=== PATIENT | female | born 1935 | race Caucasian/White ===

== ENCOUNTER 2020-04-18 22:00 | Inpatient (IN) | payer BC, MEDICARE ==
[~2020-04-18] VITALS: Ht 149.9 cm; Wt 36.3 kg
--- NOTE | 2020-04-18 22:30 | NUR ---
Patient BIB rescue from [facility] for c/o SOB, low O2 sats. Patient upon arrival A/Ox2, denies any distress but on RA O2 sat is 88%. Patient unable to lay flat on gurny with c/o SOB. Patient placed on 3Liters of O2.
[2020-04-18] MEDS ORDERED: METO25TA6 PO (22:44)
[2020-04-18] MEDS ORDERED: OLAN5TAB3 PO ×2 (22:44→22:48)
[2020-04-18] MEDS ORDERED: SERT100T PO (22:44)
[2020-04-18] MEDS ORDERED: MIRT-121 PO (22:44)
[2020-04-18] MEDS ORDERED: FURO-152 PO (22:44)
[2020-04-18] MEDS ORDERED: ATOR40TA29 PO (22:44)
[2020-04-18] MEDS ORDERED: [UNRECOGNIZED DRUG - CODE] PO (22:44)
[2020-04-18] MEDS ORDERED: MULT1TAB11 PO (22:48)
[2020-04-18] MEDS ORDERED: POLY17PO4 PO (22:48)
[2020-04-18] MEDS ORDERED: CHOL200026 PO (22:48)
[2020-04-18] MEDS ORDERED: MAGN400O6 PO (22:48)
[2020-04-18] MEDS ORDERED: IV NS 1000 ML 1,000 ML IV ONE (23:00)
[2020-04-18 23:41] LABS: BASOPHILS # (AUTO) 0.1 K/uL (0.0-8.0); BASOPHILS % (AUTO) 1.4 % (0.0-2.0); EOSINOPHILS % (AUTO) 0.2 % (0.0-7.0); HEMATOCRIT 35.5 % (31.2-41.9); HEMOGLOBIN 11.9 g/dL (10.9-14.3); LYMPHOCYTES # (AUTO) 0.2 K/uL (20.0-40.0); MEAN CORPUSCULAR HEMOGLOBIN 31.6 uug (24.7-32.8); MEAN CORPUSCULAR HGB CONC 34 g/dL (32.3-35.6); MEAN CORPUSCULAR VOLUME 94.1 fL (75.5-95.3); MONOCYTES # (AUTO) 0.6 K/uL (2.0-10.0); MONOCYTES % (AUTO) 9.8 % (0.0-11.0); NEUTROPHILS % (AUTO) 84.6 % (38.5-71.5); PLATELET COUNT (AUTO) 157 K/uL (179-408); RED BLOOD CELL COUNT(AUTO) 3.77 MIL/uL (3.63-4.92); WHITE BLOOD COUNT (AUTO) 5.9 K/uL (3.8-11.8)
[2020-04-18 23:54] LABS: BILIRUBIN,TOTAL 0.7 mg/dL (0.2-1.0); POTASSIUM 4.2 mmol/L (3.5-5.1); TOTAL PROTEIN, SERUM 8.8 g/dL (6.4-8.2)
[2020-04-19] MEDS ORDERED: DEXAMETHASONE SOD PHOSPHATE 4 MG INJ IV ONE ×2 (00:15→23:00)
[2020-04-19] MEDS ORDERED: DEXAMETHASONE SOD PHOSPHATE 10 MG INJ ONE (00:26)
[2020-04-19] MEDS ORDERED: ACETAMINOPHEN 325 MG TABLET PO PRN (01:15)
[2020-04-19] MEDS ORDERED: ONDANSETRON 4 MG/2 ML VIAL IV PRN (01:15)
[2020-04-19] MEDS ORDERED: HYDROCODONE/APAP 5-325MG TABLET PO PRN (01:15)
[2020-04-19] MEDS ORDERED: ENOXAPARIN SODIUM 40 MG/0.4 ML DISP.SYRIN SQ SCH (01:15)
[2020-04-19] MEDS ORDERED: ENOXAPARIN SODIUM 30 MG/0.3 ML DISP.SYRIN SQ SCH (02:38)
--- NOTE | 2020-04-19 03:05 | NUR ---
Transfered to 3rd floor Tele via gurny with no distress noted.
[2020-04-19 03:20] VITALS: BP 133/39
--- NOTE | 2020-04-19 03:52 | NUR ---
patient admitted at 0320 orders received before patient arrival. lovenox administered now.
--- NOTE | 2020-04-19 03:54 | NUR ---
patient received. aaox3 but forgetful. no s/s of acute distress and v/s stable at this time. on NC 2L. belonging list completed and ID band on. PIV intact and patent. safety precautions provided. will continue to monitor and assess patient.
[2020-04-19 12:00] VITALS: BP 98/40
[2020-04-19 15:51] VITALS: BP 99/40
[2020-04-19] MEDS ORDERED: APIX2.5T PO (16:13)
[2020-04-19] MEDS ORDERED: MAGNESIUM HYDROXIDE 30 ML LIQUID UDC PO PRN (16:45)
[2020-04-19] MEDS: METOPROLOL TARTRATE 25 MG TABLET PO SCH (17:00)
[2020-04-19] MEDS: APIXABAN 2.5 MG TABLET PO SCH (17:34)
--- NOTE | 2020-04-19 18:00 | NUR ---
EOSS: No significant acute changes during this shift. No changes in LOC. All due medications given as ordered and tolerated well. Pt. seen by Dr. Valentine and started on Remdesivir. Pt. swab per SYSTEMS MECH[employer]IC order for COVID-19. Remain on 2-3LPM via NC, no desaturation. Kept on isolation precaution for COVID-19. All pt. needs attended and met. Safety measures in place. Call light and all frequently used items within pt. reach. Will endorse to oncoming shift accordingly. Addendum: 04/19/20 at 1808 by ARGELIA SAXENA RN SR on [employer] [place]
[2020-04-19] MEDS ORDERED: CEFTRIAXONE 1 G in IV DEXTROSE 5% 50 ML IV SCH (20:00)
[2020-04-19] MEDS ORDERED: REMDESIVIR (CHARGED) 200 MG in IV NORMAL SALINE 210 ML IV ONE (20:00)
[2020-04-19 20:15] VITALS: BP 106/41
[2020-04-19] MEDS ORDERED: AZITHROMYCIN IV 500 MG in IV DEXTROSE 5% 250 ML IV SCH (21:00)
[2020-04-19] MEDS: AMIODARONE HCL 200 MG TABLET PO SCH ×2 (21:00→21:10)
[2020-04-19] MEDS: MIRTAZAPINE 15 MG TABLET PO SCH (21:10)
[2020-04-19] MEDS: ATORVASTATIN 40 MG TABLET PO SCH (21:10)
[2020-04-19] MEDS: OLANZAPINE 5 MG TABLET PO SCH (21:10)
--- NOTE | 2020-04-19 21:22 | NUR ---
Pt refused Amiodarone stating "I don't feel comfortable taking something new, can I talk with the doctor in the morning?". Provided pt with education in regards to risks and benefits, will continue to monitor and endorse.
[2020-04-19] MEDS ORDERED: IV NORMAL SALINE 500 ML IV SCH (22:45)
--- NOTE | 2020-04-19 22:46 | NUR ---
Notified HERB Morales of patient's low BP prior to beginning initial dose of Remdesivir. New orders given to slowly infuse 500ml NS bolus and reassess pt for higher BP and administer then. Will continue to monitor pt respirations and s/s of SOB.
[2020-04-19] MEDS: DEXAMETHASONE SOD PHOSPHATE 4 MG INJ IV SCH (23:36)
[2020-04-20] VITALS (8 sets, daily range): BP systolic 113–143; BP diastolic 43–54
--- NOTE | 2020-04-20 04:17 | NUR ---
Pt BP increased after bolus. Pt asymptomatic. Will begin remdesivir and continue to monitor.
[2020-04-20 05:30] LABS: *BILIRUBIN,URIN NEGATIVE (NEGATIVE); *BLOOD, URINE NEGATIVE (NEGATIVE); *COLOR,URINE YELLOW (YELLOW); *KETONES,URINE NEGATIVE (NEGATIVE); *UROBILINOGEN,URINE 0.2 E.U./dl (NORMAL); LEUKOCYTE ESTERASE ,URINE TRACE (NEGATIVE); NITRITE, URINE NEGATIVE (NEGATIVE); UGLUCOSE NEGATIVE (NEGATIVE)
--- NOTE | 2020-04-20 05:35 | NUR ---
VSS S/p initial Remdesivir infusion BP 122/48 HR 82 RR 18 T 97.8 O2 100 via 2L NC. No s/s of distress noted at this time. Pt denies n/v, chills, shivering, dizziness, lightheadedness. Will continue to monitor for s/s of reaction and endorse to oncoming staff.
[2020-04-20 06:11] LABS: *CLARITY,URINE HAZY (CLEAR)
[2020-04-20 06:15] LABS: BACTERIA,URINE NONE SEEN /HPF (NONE SEEN); RBC,URINE 0-3 /HPF (0-3); SQUAMOUS EPITHELIAL CELL,UR MODERATE /HPF (NONE SEEN)
[2020-04-20 07:00] LABS: BASOPHILS % (AUTO) 0.1 % (0.0-2.0); HEMATOCRIT 29.3 % (31.2-41.9); HEMOGLOBIN 9.8 g/dL (10.9-14.3); LYMPHOCYTES # (AUTO) 0.2 K/uL (20.0-40.0); LYMPHOCYTES % (AUTO) 2.7 % (20.5-51.5); MEAN CORPUSCULAR HEMOGLOBIN 31.8 uug (24.7-32.8); MEAN CORPUSCULAR HGB CONC 33 g/dL (32.3-35.6); MEAN CORPUSCULAR VOLUME 95.6 fL (75.5-95.3); MONOCYTES # (AUTO) 0.2 K/uL (2.0-10.0); MONOCYTES % (AUTO) 3.8 % (0.0-11.0); NEUTROPHILS # (AUTO) 6.2 K/uL (1.8-8.9); NEUTROPHILS % (AUTO) 93.4 % (38.5-71.5); PLATELET COUNT (AUTO) 110 K/uL (179-408); RED BLOOD CELL COUNT(AUTO) 3.06 MIL/uL (3.63-4.92); WHITE BLOOD COUNT (AUTO) 6.6 K/uL (3.8-11.8)
[2020-04-20 07:17] LABS: BILIRUBIN,DIRECT 0.2 mg/dL (0.0-0.2); BILIRUBIN,TOTAL 0.5 mg/dL (0.2-1.0); CREATININE 0.7 mg/dL (0.6-1.3); MAGNESIUM 1.8 mg/dL (1.8-2.4); PHOSPHOROUS 3.1 mg/dL (2.5-4.9); POTASSIUM 4.2 mmol/L (3.5-5.1); TOTAL PROTEIN, SERUM 6.7 g/dL (6.4-8.2)
[2020-04-20] MEDS: AMIODARONE HCL 200 MG TABLET PO SCH (09:00)
[2020-04-20] MEDS: METOPROLOL TARTRATE 25 MG TABLET PO SCH ×2 (09:00→17:20)
[2020-04-20] MEDS: SERTRALINE HCL 100 MG TABLET PO SCH (09:41)
[2020-04-20] MEDS: MULTIVIT, IRON, MIN NO. 8, FA TABLET PO SCH (09:41)
[2020-04-20] MEDS: CHOLECALCIFEROL 1,000 UNIT TABLET PO SCH (09:41)
[2020-04-20] MEDS: FUROSEMIDE 20 MG TABLET PO SCH (09:41)
[2020-04-20] MEDS: DEXAMETHASONE SOD PHOSPHATE 4 MG INJ IV SCH (09:42)
[2020-04-20] MEDS: APIXABAN 2.5 MG TABLET PO SCH ×2 (09:46→17:21)
[2020-04-20] MEDS: ENSURE CLEAR 240 ML LIQUID (MIX BERRY) PO SCH ×3 (09:48→17:21)
--- NOTE | 2020-04-20 10:30 | NUR ---
Patient refused Amiodarone at this time stating she wants to talk to MD first regarding new med. MD made aware. Refused Metoprolol at this time since she wants her BP monitored for a few times first since initially she had low BP. Educated on risks and benefits
[2020-04-20 19:14] LABS: *OCCULT BLOOD STOOL NEGATIVE (NEGATIVE)
[2020-04-20] MEDS: ATORVASTATIN 40 MG TABLET PO SCH (20:57)
[2020-04-20] MEDS: OLANZAPINE 5 MG TABLET PO SCH (20:57)
[2020-04-20] MEDS: REMDESIVIR (CHARGED) 100 MG in IV NORMAL SALINE 230 ML IV SCH (20:57)
[2020-04-20] MEDS: MIRTAZAPINE 15 MG TABLET PO SCH (20:57)
--- NOTE | 2020-04-20 22:00 | NUR ---
Pt awake and alert. No s/s of acute distress noted at this time. Pt on 1L NC, denies SOB while resting in bed. Remdesivir administered per order VSS. Pt denies feeling of lightheadedness, dizziness, n/v, chills. Will continue to monitor for s/s of interaction.
[2020-04-21] VITALS (8 sets, daily range): BP systolic 105–141; BP diastolic 48–63
--- NOTE | 2020-04-21 06:00 | NUR ---
Pt anxious sitting on the side of the bed stating "Im coughing up blood". Upon assessment notice three tissues at her side table. One noted with brown tinged sputum dime size and the other clear white sputum with a streak of bright red blood tinge. Pt SOB on 2L NC O2@ 87% RR 24. Provided relaxation techniques and increased NC to 3L, O2 at 96%. Notified Nathalie DIRECTOR OF FIRST IMPRESSIONS awaiting response. Endorsed to oncoming shift.
[2020-04-21 07:47] LABS: BILIRUBIN,DIRECT 0.2 mg/dL (0.0-0.2); BILIRUBIN,TOTAL 0.7 mg/dL (0.2-1.0); CREATININE 0.7 mg/dL (0.6-1.3); MAGNESIUM 2.2 mg/dL (1.8-2.4); PHOSPHOROUS 2.5 mg/dL (2.5-4.9); POTASSIUM 4.2 mmol/L (3.5-5.1); TOTAL PROTEIN, SERUM 7.8 g/dL (6.4-8.2)
[2020-04-21 08:12] LABS: BASOPHILS % (AUTO) 0.1 % (0.0-2.0); HEMATOCRIT 35.7 % (31.2-41.9); HEMOGLOBIN 11.1 g/dL (10.9-14.3); LYMPHOCYTES # (AUTO) 0.4 K/uL (20.0-40.0); LYMPHOCYTES % (AUTO) 3.2 % (20.5-51.5); MEAN CORPUSCULAR HEMOGLOBIN 31.6 uug (24.7-32.8); MEAN CORPUSCULAR HGB CONC 31 g/dL (32.3-35.6); MEAN CORPUSCULAR VOLUME 101.4 fL (75.5-95.3); MONOCYTES # (AUTO) 0.9 K/uL (2.0-10.0); MONOCYTES % (AUTO) 7.7 % (0.0-11.0); NEUTROPHILS # (AUTO) 10.4 K/uL (1.8-8.9); PLATELET COUNT (AUTO) 221 K/uL (179-408); RED BLOOD CELL COUNT(AUTO) 3.53 MIL/uL (3.63-4.92); WHITE BLOOD COUNT (AUTO) 11.6 K/uL (3.8-11.8)
[2020-04-21] MEDS: SERTRALINE HCL 100 MG TABLET PO SCH (11:12)
[2020-04-21] MEDS: MULTIVIT, IRON, MIN NO. 8, FA TABLET PO SCH (11:12)
[2020-04-21] MEDS: APIXABAN 2.5 MG TABLET PO SCH ×2 (11:12→17:49)
[2020-04-21] MEDS: CHOLECALCIFEROL 1,000 UNIT TABLET PO SCH (11:13)
[2020-04-21] MEDS: DEXAMETHASONE SOD PHOSPHATE 4 MG INJ IV SCH (11:13)
[2020-04-21] MEDS: FUROSEMIDE 20 MG TABLET PO SCH (11:13)
[2020-04-21] MEDS: ENSURE CLEAR 240 ML LIQUID (MIX BERRY) PO SCH ×3 (11:14→17:50)
[2020-04-21] MEDS: METOPROLOL TARTRATE 25 MG TABLET PO SCH ×2 (11:27→17:48)
[2020-04-21] MEDS: REMDESIVIR (CHARGED) 100 MG in IV NORMAL SALINE 230 ML IV SCH (20:29)
[2020-04-21] MEDS: MIRTAZAPINE 15 MG TABLET PO SCH (20:30)
[2020-04-21] MEDS: OLANZAPINE 5 MG TABLET PO SCH (20:30)
[2020-04-21] MEDS: ATORVASTATIN 40 MG TABLET PO SCH (20:30)
--- NOTE | 2020-04-21 23:37 | NUR ---
Patient stable throughout shift. No hypotension, dizziness and headache during administration of Remdesivir, currently on O2 @ 2L, denied SOB or distress at this time. Endorsed on receiving nurse. safety precaution in place
[2020-04-22 01:07] VITALS: BP 126/45
[2020-04-22 05:41] VITALS: BP 129/56
[2020-04-22] MEDS: DEXAMETHASONE SOD PHOSPHATE 4 MG INJ IV SCH (09:00)
[2020-04-22] MEDS: CHOLECALCIFEROL 1,000 UNIT TABLET PO SCH (09:00)
[2020-04-22] MEDS: APIXABAN 2.5 MG TABLET PO SCH ×2 (09:00→16:52)
[2020-04-22] MEDS: ENSURE CLEAR 240 ML LIQUID (MIX BERRY) PO SCH ×3 (09:00→16:59)
[2020-04-22] MEDS: SERTRALINE HCL 100 MG TABLET PO SCH (09:45)
[2020-04-22] MEDS: MULTIVIT, IRON, MIN NO. 8, FA TABLET PO SCH (09:45)
[2020-04-22] MEDS: FUROSEMIDE 20 MG TABLET PO SCH (09:46)
[2020-04-22] MEDS: METOPROLOL TARTRATE 25 MG TABLET PO SCH ×2 (09:46→16:58)
[2020-04-22 11:38] VITALS: BP 126/42
--- NOTE | 2020-04-22 13:39 | NUR ---
Patient is resting, alert oriented x4, VS wnl, patient had slight desaturation after ambulating to the restroom, Saturation improved after few min of rest (O2 98% on 2). morning dose of Decadron and Elequis was on hold as were not available in the unit. Droplet +contact insolations are in place. patient was up on chair for 30 min. all needs are met. will cont to monitor.
[2020-04-22 15:12] LABS: EOSINOPHILS % (AUTO) 0.1 % (0.0-7.0); HEMATOCRIT 30.2 % (31.2-41.9); HEMOGLOBIN 10.1 g/dL (10.9-14.3); LYMPHOCYTES # (AUTO) 0.2 K/uL (20.0-40.0); LYMPHOCYTES % (AUTO) 1.8 % (20.5-51.5); MEAN CORPUSCULAR HEMOGLOBIN 31.8 uug (24.7-32.8); MEAN CORPUSCULAR HGB CONC 34 g/dL (32.3-35.6); MEAN CORPUSCULAR VOLUME 94.8 fL (75.5-95.3); MONOCYTES # (AUTO) 0.6 K/uL (2.0-10.0); MONOCYTES % (AUTO) 5.3 % (0.0-11.0); NEUTROPHILS # (AUTO) 9.8 K/uL (1.8-8.9); NEUTROPHILS % (AUTO) 92.8 % (38.5-71.5); PLATELET COUNT (AUTO) 204 K/uL (179-408); RED BLOOD CELL COUNT(AUTO) 3.19 MIL/uL (3.63-4.92); WHITE BLOOD COUNT (AUTO) 10.5 K/uL (3.8-11.8)
[2020-04-22 15:35] LABS: BILIRUBIN,DIRECT 0.2 mg/dL (0.0-0.2); BILIRUBIN,TOTAL 0.6 mg/dL (0.2-1.0); CREATININE 0.7 mg/dL (0.6-1.3); MAGNESIUM 1.9 mg/dL (1.8-2.4); PHOSPHOROUS 2.6 mg/dL (2.5-4.9); POTASSIUM 3.6 mmol/L (3.5-5.1); TOTAL PROTEIN, SERUM 6.7 g/dL (6.4-8.2)
[2020-04-22 16:00] VITALS: BP 113/48
[2020-04-22] MEDS: REMDESIVIR (CHARGED) 100 MG in IV NORMAL SALINE 230 ML IV SCH (20:04)
--- NOTE | 2020-04-22 20:07 | NUR ---
Patient is resting in bed. alert oriented x3, no acute changes noted. patient received all her meds as ordered. repositioned q1hr and as needed. Katheryn, her family member called updates were given to her. report was indorsed to manager school nurse.
[2020-04-22] MEDS: MIRTAZAPINE 15 MG TABLET PO SCH (20:28)
[2020-04-22] MEDS: OLANZAPINE 5 MG TABLET PO SCH (20:28)
[2020-04-22] MEDS: ATORVASTATIN 40 MG TABLET PO SCH (20:28)
[2020-04-22 20:50] VITALS: BP 105/46
--- NOTE | 2020-04-23 00:15 | NUR ---
Received pt resting in bed. AAO x3. On 3L O2 via NC, no acute distress noted. Denies pain/ discomfort. Due meds given as ordered. Safety measures maintained. Call light and personal items within reach. Will continue to monitor.
[2020-04-23 00:55] VITALS: BP 111/54
[2020-04-23 04:22] VITALS: BP 129/57
[2020-04-23 07:25] LABS: BASOPHILS % (AUTO) 0.2 % (0.0-2.0); EOSINOPHILS % (AUTO) 0.3 % (0.0-7.0); HEMATOCRIT 31.3 % (31.2-41.9); HEMOGLOBIN 10.4 g/dL (10.9-14.3); LYMPHOCYTES # (AUTO) 0.5 K/uL (20.0-40.0); LYMPHOCYTES % (AUTO) 6.1 % (20.5-51.5); MEAN CORPUSCULAR HEMOGLOBIN 31.5 uug (24.7-32.8); MEAN CORPUSCULAR HGB CONC 33 g/dL (32.3-35.6); MEAN CORPUSCULAR VOLUME 95.1 fL (75.5-95.3); MONOCYTES # (AUTO) 0.7 K/uL (2.0-10.0); MONOCYTES % (AUTO) 8.5 % (0.0-11.0); NEUTROPHILS # (AUTO) 7.2 K/uL (1.8-8.9); NEUTROPHILS % (AUTO) 84.9 % (38.5-71.5); PLATELET COUNT (AUTO) 197 K/uL (179-408); RED BLOOD CELL COUNT(AUTO) 3.29 MIL/uL (3.63-4.92); WHITE BLOOD COUNT (AUTO) 8.5 K/uL (3.8-11.8)
--- NOTE | 2020-04-23 07:30 | NUR ---
Received patient in bed, awake alert and oriented. No sign of distress noted. Safety precautions are in place. Will continue to monitor.
[2020-04-23 07:46] LABS: BILIRUBIN,DIRECT 0.3 mg/dL (0.0-0.2); BILIRUBIN,TOTAL 0.6 mg/dL (0.2-1.0); CREATININE 0.7 mg/dL (0.6-1.3); MAGNESIUM 1.9 mg/dL (1.8-2.4); PHOSPHOROUS 2.2 mg/dL (2.5-4.9); POTASSIUM 3.8 mmol/L (3.5-5.1); TOTAL PROTEIN, SERUM 6.4 g/dL (6.4-8.2)
[2020-04-23] MEDS: CHOLECALCIFEROL 1,000 UNIT TABLET PO SCH (11:01)
[2020-04-23] MEDS: APIXABAN 2.5 MG TABLET PO SCH ×2 (11:01→18:16)
[2020-04-23] MEDS: DEXAMETHASONE SOD PHOSPHATE 4 MG INJ IV SCH (11:02)
[2020-04-23] MEDS: FUROSEMIDE 20 MG TABLET PO SCH (11:02)
[2020-04-23] MEDS: SERTRALINE HCL 100 MG TABLET PO SCH (11:02)
[2020-04-23] MEDS: MULTIVIT, IRON, MIN NO. 8, FA TABLET PO SCH (11:02)
[2020-04-23] MEDS: ENSURE CLEAR 240 ML LIQUID (MIX BERRY) PO SCH ×3 (11:02→18:14)
[2020-04-23] MEDS: METOPROLOL TARTRATE 25 MG TABLET PO SCH ×2 (11:05→18:13)
[2020-04-23 12:00] VITALS: BP 147/56
[2020-04-23 16:00] VITALS: BP 124/55
[2020-04-23] MEDS ORDERED: NEUTRA PHOS PACKET PO ONE (16:30)
[2020-04-23 20:43] VITALS: BP 110/48
[2020-04-23] MEDS: REMDESIVIR (CHARGED) 100 MG in IV NORMAL SALINE 230 ML IV SCH (20:51)
[2020-04-23] MEDS: ATORVASTATIN 40 MG TABLET PO SCH (20:51)
[2020-04-23] MEDS: OLANZAPINE 5 MG TABLET PO SCH (20:51)
[2020-04-23] MEDS: MIRTAZAPINE 15 MG TABLET PO SCH (20:51)
[2020-04-24 00:47] VITALS: BP 114/48
[2020-04-24 04:56] VITALS: BP 105/43
[2020-04-24] MEDS: SERTRALINE HCL 100 MG TABLET PO SCH (09:08)
[2020-04-24] MEDS: MULTIVIT, IRON, MIN NO. 8, FA TABLET PO SCH (09:08)
[2020-04-24] MEDS: FUROSEMIDE 20 MG TABLET PO SCH (09:08)
[2020-04-24] MEDS: CHOLECALCIFEROL 1,000 UNIT TABLET PO SCH (09:08)
[2020-04-24] MEDS: DEXAMETHASONE SOD PHOSPHATE 4 MG INJ IV SCH (09:09)
[2020-04-24] MEDS: METOPROLOL TARTRATE 25 MG TABLET PO SCH ×2 (09:10→17:00)
[2020-04-24] MEDS: APIXABAN 2.5 MG TABLET PO SCH ×2 (09:11→17:59)
[2020-04-24] MEDS: ENSURE CLEAR 240 ML LIQUID (MIX BERRY) PO SCH ×3 (09:12→18:00)
[2020-04-24 12:14] VITALS: BP 112/54
[2020-04-24 16:00] VITALS: BP 117/59
--- NOTE | 2020-04-24 18:00 | NUR ---
Patient, remains alert oriented x 3, not in any form of distress on 3LPM via nasal cannula. She denies any pain or discomfort at this time. Assisted patient to the toilet to void and safely back to bed. Call light and frequently used items placed within patient's reach. Will continue to monitor and will endorse accordingly.
[2020-04-24 20:15] VITALS: BP 111/47
[2020-04-24] MEDS: MIRTAZAPINE 15 MG TABLET PO SCH (21:12)
[2020-04-24] MEDS: OLANZAPINE 5 MG TABLET PO SCH (21:12)
[2020-04-24] MEDS: ATORVASTATIN 40 MG TABLET PO SCH (21:12)
[2020-04-25 00:06] VITALS: BP 112/47
[2020-04-25 06:02] VITALS: BP 125/49
--- NOTE | 2020-04-25 07:03 | NUR ---
Patient alert oriented, no sob no chest pain, tele monitor sinus rhythm. Patient assisted with toileting, kept clean and dry, patient tolerate 3 liter nc, no desaturation noted, cont to monitor.
--- NOTE | 2020-04-25 07:30 | NUR ---
Received patient in bed, Awake, alert and oriented times 3 but forgetful. No signs of distress noted. Patient is saturating well on 3L of oxygen. Safety precautions in place. Will continue to monitor.
[2020-04-25] MEDS: ENSURE CLEAR 240 ML LIQUID (MIX BERRY) PO SCH ×3 (11:10→18:23)
[2020-04-25] MEDS: DEXAMETHASONE SOD PHOSPHATE 4 MG INJ IV SCH (11:10)
[2020-04-25] MEDS: CHOLECALCIFEROL 1,000 UNIT TABLET PO SCH (11:10)
[2020-04-25 11:11] LABS: BASOPHILS % (AUTO) 0.1 % (0.0-2.0); EOSINOPHILS # (AUTO) 0.1 K/uL (0.0-0.7); HEMATOCRIT 31.5 % (31.2-41.9); HEMOGLOBIN 10.4 g/dL (10.9-14.3); LYMPHOCYTES # (AUTO) 0.7 K/uL (20.0-40.0); LYMPHOCYTES % (AUTO) 6.9 % (20.5-51.5); MEAN CORPUSCULAR HEMOGLOBIN 31.4 uug (24.7-32.8); MEAN CORPUSCULAR HGB CONC 33 g/dL (32.3-35.6); MEAN CORPUSCULAR VOLUME 95.2 fL (75.5-95.3); MONOCYTES % (AUTO) 10.2 % (0.0-11.0); NEUTROPHILS # (AUTO) 8.1 K/uL (1.8-8.9); NEUTROPHILS % (AUTO) 81.8 % (38.5-71.5); PLATELET COUNT (AUTO) 232 K/uL (179-408); RED BLOOD CELL COUNT(AUTO) 3.31 MIL/uL (3.63-4.92); WHITE BLOOD COUNT (AUTO) 9.9 K/uL (3.8-11.8)
[2020-04-25] MEDS: MULTIVIT, IRON, MIN NO. 8, FA TABLET PO SCH (11:11)
[2020-04-25] MEDS: SERTRALINE HCL 100 MG TABLET PO SCH (11:11)
[2020-04-25] MEDS: APIXABAN 2.5 MG TABLET PO SCH ×2 (11:11→18:24)
[2020-04-25] MEDS: FUROSEMIDE 20 MG TABLET PO SCH (11:12)
[2020-04-25] MEDS: METOPROLOL TARTRATE 25 MG TABLET PO SCH ×2 (11:26→18:25)
[2020-04-25 11:29] LABS: CREATININE 0.8 mg/dL (0.6-1.3); POTASSIUM 3.3 mmol/L (3.5-5.1)
[2020-04-25 12:00] VITALS: BP 107/47
[2020-04-25] MEDS ORDERED: POTASSIUM CHLORIDE 20 MEQ TAB.PRT.SR PO ONE (14:45)
[2020-04-25] MEDS ORDERED: NEUTRA PHOS PACKET PO ONE (14:45)
[2020-04-25 16:00] VITALS: BP 116/54
[2020-04-25 20:15] VITALS: BP_SYST 102; BP_SYST 106; BP_DIAS 42; BP_DIAS 43
[2020-04-25] MEDS: MIRTAZAPINE 15 MG TABLET PO SCH (21:50)
[2020-04-25] MEDS: OLANZAPINE 5 MG TABLET PO SCH (21:50)
[2020-04-25] MEDS: ATORVASTATIN 40 MG TABLET PO SCH (21:50)
[2020-04-26 00:09] VITALS: BP 104/69
[2020-04-26 05:38] VITALS: BP 116/45
[2020-04-26 08:07] LABS: CREATININE 0.9 mg/dL (0.6-1.3); MAGNESIUM 1.9 mg/dL (1.8-2.4); PHOSPHOROUS 3.1 mg/dL (2.5-4.9); POTASSIUM 4.4 mmol/L (3.5-5.1)
[2020-04-26 08:38] LABS: BASOPHILS % (AUTO) 0.2 % (0.0-2.0); EOSINOPHILS # (AUTO) 0.1 K/uL (0.0-0.7); EOSINOPHILS % (AUTO) 0.7 % (0.0-7.0); HEMATOCRIT 31.7 % (31.2-41.9); HEMOGLOBIN 10.6 g/dL (10.9-14.3); LYMPHOCYTES # (AUTO) 0.7 K/uL (20.0-40.0); LYMPHOCYTES % (AUTO) 8.6 % (20.5-51.5); MEAN CORPUSCULAR HEMOGLOBIN 31.9 uug (24.7-32.8); MEAN CORPUSCULAR HGB CONC 34 g/dL (32.3-35.6); MEAN CORPUSCULAR VOLUME 95.2 fL (75.5-95.3); MONOCYTES # (AUTO) 0.8 K/uL (2.0-10.0); MONOCYTES % (AUTO) 9.5 % (0.0-11.0); NEUTROPHILS # (AUTO) 6.7 K/uL (1.8-8.9); PLATELET COUNT (AUTO) 280 K/uL (179-408); RED BLOOD CELL COUNT(AUTO) 3.33 MIL/uL (3.63-4.92); WHITE BLOOD COUNT (AUTO) 8.3 K/uL (3.8-11.8)
[2020-04-26] MEDS: MULTIVIT, IRON, MIN NO. 8, FA TABLET PO SCH (09:26)
[2020-04-26] MEDS: DEXAMETHASONE SOD PHOSPHATE 4 MG INJ IV SCH (09:26)
[2020-04-26] MEDS: FUROSEMIDE 20 MG TABLET PO SCH (09:26)
[2020-04-26] MEDS: ENSURE CLEAR 240 ML LIQUID (MIX BERRY) PO SCH ×3 (09:26→17:46)
[2020-04-26] MEDS: SERTRALINE HCL 100 MG TABLET PO SCH (09:26)
[2020-04-26] MEDS: APIXABAN 2.5 MG TABLET PO SCH ×2 (09:27→17:54)
[2020-04-26] MEDS: METOPROLOL TARTRATE 25 MG TABLET PO SCH ×2 (09:46→17:00)
[2020-04-26] MEDS: CHOLECALCIFEROL 1,000 UNIT TABLET PO SCH (10:12)
[2020-04-26 12:13] LABS: ABG BASE EXCESS 4.1 mmol/L; ABG HCO3 28.6 mmol/L; ABG PCO2 42.8 mmHg (35.0-45.0); ABG PH 7.443 (7.350-7.450); ABG SITE LEFT BRACHIAL; ABG TOTAL HEMOGLOBIN 10.7 G/dL (12.0-16.0); COHb 1.3 % (0.5-1.5); MetHb 0.3 % (0.0-1.5); O2Hb 94.7 % (94.0-97.0); VENT MODE Nasal Cannula
[2020-04-26 16:00] VITALS: BP 105/48
--- NOTE | 2020-04-26 18:59 | NUR ---
patient in bed resting. pt is now on 2L of O2 via NC. no signs of distress noted. gave all medications as ordered. bed in low and locked position, call light within reach. will endorse to oncoming nurse.
[2020-04-26 20:00] VITALS: BP 104/58
[2020-04-26] MEDS: OLANZAPINE 5 MG TABLET PO SCH (21:11)
[2020-04-26] MEDS: ATORVASTATIN 40 MG TABLET PO SCH (21:11)
[2020-04-26] MEDS: MIRTAZAPINE 15 MG TABLET PO SCH (21:11)
[2020-04-27] VITALS: BP 114/55
[2020-04-27 04:30] VITALS: BP 104/53
[2020-04-27 07:35] LABS: BASOPHILS % (AUTO) 0.2 % (0.0-2.0); EOSINOPHILS # (AUTO) 0.1 K/uL (0.0-0.7); EOSINOPHILS % (AUTO) 0.7 % (0.0-7.0); HEMATOCRIT 29.4 % (31.2-41.9); HEMOGLOBIN 9.8 g/dL (10.9-14.3); LYMPHOCYTES # (AUTO) 0.8 K/uL (20.0-40.0); LYMPHOCYTES % (AUTO) 10.3 % (20.5-51.5); MEAN CORPUSCULAR HEMOGLOBIN 31.4 uug (24.7-32.8); MEAN CORPUSCULAR HGB CONC 33 g/dL (32.3-35.6); MEAN CORPUSCULAR VOLUME 94.1 fL (75.5-95.3); MONOCYTES # (AUTO) 0.8 K/uL (2.0-10.0); MONOCYTES % (AUTO) 10.3 % (0.0-11.0); NEUTROPHILS % (AUTO) 78.5 % (38.5-71.5); PLATELET COUNT (AUTO) 240 K/uL (179-408); RED BLOOD CELL COUNT(AUTO) 3.12 MIL/uL (3.63-4.92); WHITE BLOOD COUNT (AUTO) 7.6 K/uL (3.8-11.8)
[2020-04-27 07:42] LABS: CREATININE 0.9 mg/dL (0.6-1.3); POTASSIUM 4.2 mmol/L (3.5-5.1)
--- NOTE | 2020-04-27 07:45 | NUR ---
Received PT in bed, awake AO X 4. Safety measures noted. PT is cooperative and pleasant. Some forgetfulness noted, but easily redirected. No acute distress or SOB noted. No complain of pain. Makes needs known to staff. PT is able to ambulate to bathroom with assist. Gait steady. PT returned to bed with safety measures, call light within reach, bed low and lock. Will continue to monitor. PLAN: Discharge to [facility] once oxygen tank is received.
[2020-04-27] MEDS: FUROSEMIDE 20 MG TABLET PO SCH (08:52)
[2020-04-27] MEDS: DEXAMETHASONE SOD PHOSPHATE 4 MG INJ IV SCH (08:52)
[2020-04-27] MEDS: SERTRALINE HCL 100 MG TABLET PO SCH (08:53)
[2020-04-27] MEDS: METOPROLOL TARTRATE 25 MG TABLET PO SCH ×2 (08:53→17:38)
[2020-04-27] MEDS: CHOLECALCIFEROL 1,000 UNIT TABLET PO SCH (08:53)
[2020-04-27] MEDS: MULTIVIT, IRON, MIN NO. 8, FA TABLET PO SCH (08:53)
[2020-04-27] MEDS: ENSURE CLEAR 240 ML LIQUID (MIX BERRY) PO SCH ×3 (08:55→17:38)
[2020-04-27] MEDS: APIXABAN 2.5 MG TABLET PO SCH ×2 (10:17→18:01)
[2020-04-27 12:00] VITALS: BP 137/54
--- NOTE | 2020-04-27 17:45 | NUR ---
Oxygen tank received at the hospital and at nurses station in Med Surg unit. Oxygen tank arrangements were done by bilingual patient support caseworker. HERB Cisse wasn't aware of arrangements and will place discharge orders in the morning. Notified niece and updated her about current status. PT is cooperative and pleasant. Will endorse to overnight caregiver nurse. Safety measures provided, call light within reach, bed low and lock.
--- NOTE | 2020-04-27 19:50 | NUR ---
Patient alert oriented, no sob no chest pain. Patient tele monitor sinus rhythm at this time. Patient continent of bowel and bladder, assisted with toileting, Patient on 2 liters nasal cannula sat 97%, patient short of breath when exertion, cont to monitor.
[2020-04-27 20:12] VITALS: BP 113/43
[2020-04-27] MEDS: OLANZAPINE 5 MG TABLET PO SCH (20:49)
[2020-04-27] MEDS: MIRTAZAPINE 15 MG TABLET PO SCH (20:49)
[2020-04-27] MEDS: ATORVASTATIN 40 MG TABLET PO SCH (20:49)
[2020-04-28 00:12] VITALS: BP 104/47
[2020-04-28 04:12] VITALS: BP 114/58
[2020-04-28 06:27] LABS: BASOPHILS % (AUTO) 0.1 % (0.0-2.0); EOSINOPHILS # (AUTO) 0.1 K/uL (0.0-0.7); EOSINOPHILS % (AUTO) 0.6 % (0.0-7.0); HEMATOCRIT 30.7 % (31.2-41.9); HEMOGLOBIN 10.1 g/dL (10.9-14.3); LYMPHOCYTES # (AUTO) 0.8 K/uL (20.0-40.0); LYMPHOCYTES % (AUTO) 9.4 % (20.5-51.5); MEAN CORPUSCULAR HEMOGLOBIN 31.1 uug (24.7-32.8); MEAN CORPUSCULAR HGB CONC 33 g/dL (32.3-35.6); MEAN CORPUSCULAR VOLUME 94.4 fL (75.5-95.3); MONOCYTES # (AUTO) 0.8 K/uL (2.0-10.0); MONOCYTES % (AUTO) 9.2 % (0.0-11.0); NEUTROPHILS # (AUTO) 7.1 K/uL (1.8-8.9); NEUTROPHILS % (AUTO) 80.7 % (38.5-71.5); PLATELET COUNT (AUTO) 234 K/uL (179-408); RED BLOOD CELL COUNT(AUTO) 3.26 MIL/uL (3.63-4.92); WHITE BLOOD COUNT (AUTO) 8.8 K/uL (3.8-11.8)
[2020-04-28 06:47] LABS: CREATININE 0.8 mg/dL (0.6-1.3); POTASSIUM 4.4 mmol/L (3.5-5.1)
[2020-04-28] MEDS ORDERED: METH4TAB3 PO (07:50)
--- NOTE | 2020-04-28 08:00 | NUR ---
Pt is awake, calm, A/ox 2. Pt is on O2 at 2lpm, no sob, saturaates at 96%. No distress noted. Side rainls are up and call light is within reach
[2020-04-28] MEDS: FUROSEMIDE 20 MG TABLET PO SCH (08:26)
[2020-04-28] MEDS: SERTRALINE HCL 100 MG TABLET PO SCH (08:26)
[2020-04-28] MEDS: MULTIVIT, IRON, MIN NO. 8, FA TABLET PO SCH (08:26)
[2020-04-28] MEDS: CHOLECALCIFEROL 1,000 UNIT TABLET PO SCH (08:26)
[2020-04-28] MEDS: ENSURE CLEAR 240 ML LIQUID (MIX BERRY) PO SCH (08:27)
[2020-04-28] MEDS: DEXAMETHASONE SOD PHOSPHATE 4 MG INJ IV SCH (08:27)
[2020-04-28] MEDS: APIXABAN 2.5 MG TABLET PO SCH (08:27)
[2020-04-28] MEDS: METOPROLOL TARTRATE 25 MG TABLET PO SCH (08:40)
[2020-04-28 12:00] VITALS: BP 116/40
--- NOTE | 2020-04-28 14:37 | NUR ---
Pt is being discharged to [facility] via ambulance. Pt is on O2 canula at 2LPM. Pt is alert and willing to go.
== END 2020-04-28 14:30 | disposition home health service (06) | DRG 177 ==
LOC: ER 22:02 → TELE3 04-19 02:30 → MEDSURG3 04-28 09:27
PROVIDERS: ADMIT Registered Nurse; ATTEND Nurse Practitioner Acute Care
PROC: XW033E5 Introduction of Remdesivir Anti-infective into Peripheral Vein, Percutaneous Approach, New Technology Group 5 (ICD-10-PCS; principal; 2020-04-19)
DX: U07.1 COVID-19 (principal); J96.01 Acute respiratory failure with hypoxia; J12.82 Pneumonia due to coronavirus disease 2019; N39.0 Urinary tract infection, site not specified; I50.32 Chronic diastolic (congestive) heart failure; Z88.2 Allergy status to sulfonamides; Z88.0 Allergy status to penicillin; Z95.1 Presence of aortocoronary bypass graft; Z95.2 Presence of prosthetic heart valve; I25.10 Atherosclerotic heart disease of native coronary artery without angina pectoris; F03.90 Unspecified dementia, unspecified severity, without behavioral disturbance, psychotic disturbance, mood disturbance, and anxiety; E78.5 Hyperlipidemia, unspecified; D64.9 Anemia, unspecified; I48.0 Paroxysmal atrial fibrillation; Z79.01 Long term (current) use of anticoagulants; I11.0 Hypertensive heart disease with heart failure
CPT/HCPCS: 36415; 36600; 70030-TC; 71045; 83605; 83615; 83735; 84100; 85025; 85610; 85730; 86140; 86480; 87040; 87086; 93005; A4663; G0378; J0456; J0696; J1100; J1650; J2405; J7030; J7050; J7060; U0003